=== PATIENT | female | born 1955 | race Caucasian/White ===

== ENCOUNTER → 2016-05-14 | Outpatient (CLI) | payer BC | LOC: KOH-I 09:00 | DX: M81.0 Age-related osteoporosis without current pathological fracture (principal); M85.88 Other specified disorders of bone density and structure, other site | CPT/HCPCS: 77080 ==

== ENCOUNTER → 2016-06-16 | Outpatient (CLI) | payer BC | LOC: MAMO 06-14 09:00 | DX: Z12.31 Encounter for screening mammogram for malignant neoplasm of breast (principal) | CPT/HCPCS: G0202 ==

== ENCOUNTER → 2020-09-26 | Outpatient (CLI) | payer BC | LOC: EXRD 10:32 | DX: R31.9 Hematuria, unspecified (principal); K80.80 Other cholelithiasis without obstruction | CPT/HCPCS: 76775 ==

== ENCOUNTER → 2020-10-21 | Outpatient (CLI) | payer BC | LOC: MAMO 08:11 | DX: Z12.31 Encounter for screening mammogram for malignant neoplasm of breast (principal) | CPT/HCPCS: 77063; 77067 ==

== ENCOUNTER 2020-12-05 14:26 | Emergency (ER) | payer BC ==
[2020-12-05 15:55] LABS: HEMOGLOBIN 13.6 gm/dl (12.3-15.3); RED BLOOD COUNT 4.15 M/UL (4.00-5.10); WHITE BLOOD COUNT 8.3 K/UL (4.5-11.0)
[2020-12-05 16:14] LABS: BUN/CREATININE RATIO 18 (0-10)
[2020-12-05] MEDS ORDERED: ZOFRAN ODT 4 MG4 MG SL (18:30)
[2020-12-05] MEDS ORDERED: BENTYL 10MG CAP10 MG PO (18:30)
== END 2020-12-05 18:49 | disposition home or self-care (01) ==
LOC: ER1 14:26
PROVIDERS: Emergency Medicine
DX: R10.84 Generalized abdominal pain (principal)
CPT/HCPCS: 80053; 81001; 83605; 83690; 85025; 96372; 96374; 96375; 96376; 99284; J0500; J2270; J2405

== ENCOUNTER → 2020-12-15 | Outpatient (CLI) | payer BC ==
[~2020-12-15] MED LIST: BENTYL 10MG CAP10 MG PO; ZOFRAN ODT 4 MG4 MG SL
== END ==
LOC: US 09:00
DX: R10.10 Upper abdominal pain, unspecified (principal); K80.20 Calculus of gallbladder without cholecystitis without obstruction
CPT/HCPCS: 36415; 76705; 80076; 82150; 83690

== ENCOUNTER → 2021-01-13 | Outpatient (CLI) | payer BC | LOC: NM 13:00 | DX: R10.11 Right upper quadrant pain (principal) | CPT/HCPCS: 78226; A9537 ==

== ENCOUNTER → 2021-10-12 | Outpatient (CLI) | payer BC | LOC: MAMO 08-24 09:30 | DX: Z12.31 Encounter for screening mammogram for malignant neoplasm of breast (principal) | CPT/HCPCS: 77063; 77067 ==

== ENCOUNTER → 2021-10-27 | Outpatient (CLI) | payer BC | LOC: KOH-I 09:36 | DX: M79.671 Pain in right foot (principal); M21.071 Valgus deformity, not elsewhere classified, right ankle | CPT/HCPCS: 73630 ==

== ENCOUNTER → 2021-11-03 | Outpatient (CLI) | payer BC | LOC: EXRD 09:18 | DX: Z01.411 Encounter for gynecological examination (general) (routine) with abnormal findings (principal); Z78.0 Asymptomatic menopausal state; M85.9 Disorder of bone density and structure, unspecified | CPT/HCPCS: 77080 ==

== ENCOUNTER → 2021-11-11 | Outpatient (CLI) | payer BC | LOC: KOH-I 13:30 | DX: Z01.810 Encounter for preprocedural cardiovascular examination (principal) | CPT/HCPCS: 93926 ==

== ENCOUNTER → 2021-11-16 | Outpatient (CLI) | payer BC | LOC: KOH-I 10:02 | DX: M25.561 Pain in right knee (principal); M25.562 Pain in left knee | CPT/HCPCS: 93970 ==